=== PATIENT | female | born 1940 | race Caucasian/White ===

== ENCOUNTER 2019-10-03 13:13 | Inpatient (IN) | payer MEDICARE ==
[~2019-10-03] VITALS: Ht 157.5 cm; Wt 54.0 kg
[2019-10-03] MEDS ORDERED: LACTATED RINGERS 1,000 ML IV SCH (13:52)
[2019-10-03] MEDS ORDERED: ACETAMINOPHEN 500 MG TABLET PO ONE (14:00)
[2019-10-03] MEDS ORDERED: BUDE180A INH (14:08)
[2019-10-03] MEDS ORDERED: ACET-1600 PO (14:08)
[2019-10-03] MEDS ORDERED: GABA300C10 PO (14:08)
[2019-10-03] MEDS ORDERED: ACYC-114 PO (14:08)
[2019-10-03 14:20] VITALS: BP 180/92
[2019-10-03] MEDS ORDERED: EPHEDRINE 50 MG/ML, 1ML IVPush PRN (14:30)
[2019-10-03] MEDS ORDERED: PROMETHAZINE 25 MG/ML, 1ML IV PRN (14:30)
[2019-10-03] MEDS ORDERED: FENTANYL PF 100 MCG/2ML IV PRN (14:30)
[2019-10-03] MEDS ORDERED: LABETALOL 5MG/ML, 20ML IV PRN (14:30)
[2019-10-03] MEDS ORDERED: HYDROmorphone 2 MG/ML, 1ML IVPush PRN (14:30)
[2019-10-03] MEDS ORDERED: MEPERIDINE/PF 25MG/ML,1ML IVPush PRN (14:30)
[2019-10-03] MEDS ORDERED: OXYcodone 5 MG/5 ML ORAL.SOL UDC PO PRN (14:30)
[2019-10-03] MEDS ORDERED: ONDANSETRON 2MG/ML, 2ML IV PRN (14:30)
[2019-10-03] MEDS ORDERED: hydrALAzine 20 MG/ML, 1ML IV PRN (14:30)
[2019-10-03] MEDS ORDERED: THROMBIN 5,000 UNIT VIAL TP ONE ×2 (14:41→16:24)
[2019-10-03] MEDS ORDERED: BUPIVACAINE/PF 0.25% ONE (14:41)
[2019-10-03] MEDS ORDERED: BACITRACIN 50,000 UNIT ONE (14:41)
[2019-10-03] MEDS ORDERED: FENTANYL PF 100 MCG/2ML ONE ×2 (15:06→16:50)
[2019-10-03] MEDS ORDERED: PROPOFOL 10 MG/ML, 20ML ONE (15:49)
[2019-10-03] MEDS ORDERED: CEFAZOLIN 1,000 MG ONE (15:49)
[2019-10-03] MEDS ORDERED: DEXAMETHASONE 4 MG/ML, 1ML ONE (15:49)
[2019-10-03] MEDS ORDERED: LIDOCAINE PF 2%, 5ML ONE (15:49)
[2019-10-03] MEDS ORDERED: KETOROLAC 30 MG/1 ML ONE (15:58)
[2019-10-03] MEDS ORDERED: ONDANSETRON 2MG/ML, 2ML ONE (16:09)
[2019-10-03] MEDS ORDERED: EPHEDRINE 50 MG/ML, 1ML ONE (17:07)
[2019-10-03] MEDS ORDERED: HYDROmorphone 1 MG/ML, 1ML INJ IVPush PRN (18:00)
[2019-10-03] MEDS ORDERED: ACETAMINOPHEN 325 MG TABLET PO PRN (18:00)
[2019-10-03] MEDS ORDERED: HYDROmorphone PCA 30 MG/30 ML IV PRN (18:00)
[2019-10-03] MEDS ORDERED: BISACODYL 10 MG SUPP PR PRN (18:00)
[2019-10-03] MEDS ORDERED: PHARMACY MAY ADJ FOR RENAL FX MC PRN (18:00)
[2019-10-03] MEDS ORDERED: DIPHENHYDRAMINE 50 MG/ML, 1ML IVPush PRN (18:00)
[2019-10-03] MEDS ORDERED: PHARMACY INSTRUCTION MC PRN (18:00)
[2019-10-03] MEDS ORDERED: ONDANSETRON 2MG/ML, 2ML IVPush PRN (18:00)
[2019-10-03] MEDS ORDERED: MAGNESIUM HYDROXIDE 8%, 30ML UDC PO PRN (18:00)
[2019-10-03 19:13] VITALS: BP 149/83
[2019-10-03] MEDS: NS + 20MEQ KCL 1,000 ML IV SCH (20:27)
[2019-10-03] MEDS: SODIUM CHLORIDE FLUSH 10ML SYR IVF SCH (20:27)
[2019-10-03] MEDS: GABAPENTIN 300 MG CAPSULE PO SCH (20:30)
[2019-10-03 23:50] VITALS: BP 190/94
[2019-10-04] VITALS (7 sets, daily range): BP systolic 124–215; BP diastolic 71–109
[2019-10-04] MEDS ORDERED: LABETALOL 5 MG/ML SYR. (IV ONLY) IVPush PRN (00:30)
[2019-10-04] MEDS ORDERED: hydrALAzine 20 MG/ML, 1ML IV PRN (00:30)
[2019-10-04] MEDS: CEFAZOLIN PMX 1GM/50ML 50 ML IVPB SCH ×2 (00:41→08:39)
[2019-10-04] MEDS: GABAPENTIN 300 MG CAPSULE PO SCH ×3 (08:36→21:23)
[2019-10-04] MEDS: ACYCLOVIR 400 MG TABLET PO SCH (08:36)
[2019-10-04] MEDS: SENNA/DOCUSATE TABLET PO SCH (08:37)
[2019-10-04] MEDS: SODIUM CHLORIDE FLUSH 10ML SYR IVF SCH ×2 (08:39→21:00)
[2019-10-04] MEDS: NS + 20MEQ KCL 1,000 ML IV SCH (10:21)
[2019-10-04] MEDS: OXYcodone/APAP 5/325MG TABLET PO PRN ×3 (16:28→22:12)
[2019-10-05] MEDS: NS + 20MEQ KCL 1,000 ML IV SCH ×2 (00:20→01:44)
[2019-10-05 02:17] VITALS: BP 141/83
[2019-10-05] MEDS: OXYcodone/APAP 5/325MG TABLET PO PRN ×5 (04:17→22:36)
[2019-10-05] MEDS: TIZANIDINE 4MG TABLET PO PRN ×2 (04:53→16:03)
[2019-10-05 07:15] VITALS: BP 131/75
[2019-10-05] MEDS: SENNA/DOCUSATE TABLET PO SCH (08:35)
[2019-10-05] MEDS: GABAPENTIN 300 MG CAPSULE PO SCH ×3 (08:35→20:38)
[2019-10-05] MEDS: ACYCLOVIR 400 MG TABLET PO SCH (08:35)
[2019-10-05] MEDS: SODIUM CHLORIDE FLUSH 10ML SYR IVF SCH ×2 (08:35→20:38)
[2019-10-05 13:00] VITALS: BP 168/75
[2019-10-05 18:58] VITALS: BP 123/82
[2019-10-06 02:30] VITALS: BP 149/76
[2019-10-06] MEDS: OXYcodone/APAP 5/325MG TABLET PO PRN ×3 (02:53→12:08)
[2019-10-06 07:32] VITALS: BP 126/73
[2019-10-06] MEDS: NS + 20MEQ KCL 1,000 ML IV SCH (08:00)
[2019-10-06] MEDS: TIZANIDINE 4MG TABLET PO PRN (08:14)
[2019-10-06] MEDS: GABAPENTIN 300 MG CAPSULE PO SCH (08:14)
[2019-10-06] MEDS: ACYCLOVIR 400 MG TABLET PO SCH (08:14)
[2019-10-06] MEDS: SODIUM CHLORIDE FLUSH 10ML SYR IVF SCH (08:14)
[2019-10-06] MEDS: SENNA/DOCUSATE TABLET PO SCH (08:14)
[2019-10-06] MEDS ORDERED: OXYcodone/APAP 5/325MG PO (08:50)
[2019-10-06] MEDS ORDERED: TIZA2TAB2 PO (08:50)
[2019-10-06 12:48] VITALS: BP 112/71
== END 2019-10-06 15:37 | disposition home or self-care (01) | DRG 519 ==
LOC: OR 13:13 → ORIP 17:31 → 4NE 18:50 → DCLOUNGE 10-06 14:56
PROVIDERS: ADMIT Neurological Surgery; ATTEND Neurological Surgery
PROC: 01NB0ZZ Release Lumbar Nerve, Open Approach (ICD-10-PCS; principal; 2019-10-06)
PROC: 00NY0ZZ Release Lumbar Spinal Cord, Open Approach (ICD-10-PCS; 2019-10-06)
PROC: 01NR0ZZ Release Sacral Nerve, Open Approach (ICD-10-PCS; 2019-10-06)
PROC: 00QT0ZZ Repair Spinal Meninges, Open Approach (ICD-10-PCS; 2019-10-06)
DX: M48.061 Spinal stenosis, lumbar region without neurogenic claudication (principal); G97.41 Accidental puncture or laceration of dura during a procedure; M54.16 Radiculopathy, lumbar region; M19.90 Unspecified osteoarthritis, unspecified site; F17.210 Nicotine dependence, cigarettes, uncomplicated; M81.0 Age-related osteoporosis without current pathological fracture; J43.9 Emphysema, unspecified; Z88.2 Allergy status to sulfonamides; Z82.61 Family history of arthritis; Y83.8 Other surgical procedures as the cause of abnormal reaction of the patient, or of later complication, without mention of misadventure at the time of the procedure
CPT/HCPCS: 72100; G0378; J0690; J1100; J1170; J1885; J2405; J2704; J3010; J3480; J3490; J0360; J7120

== ENCOUNTER → 2020-08-30 | Outpatient (CLI) | payer MEDICARE ==
[~2020-08-30] MED LIST: ACET-1600 PO; ACYC-114 PO; ACYC-57 PO; BUDE180A INH; CALC-112 PO; GABA300C10 PO; OXYcodone/APAP 5/325MG PO; TIZA2TAB4 PO
[2020-08-30 15:32] LABS: BASOPHILS # (AUTO) 0.04 x10^3/uL (0-0.1); BASOPHILS % (AUTO) 1 % (0-1); EOSINOPHILS # (AUTO) 0.09 x10^3/uL (0-0.4); EOSINOPHILS % (AUTO) 1 % (1-7); LYMPHOCYTES # (AUTO) 2.64 x10^3/uL (1-3.4); LYMPHOCYTES % (AUTO) 32 % (22-44); MD NO; MEAN CORPUSCULAR HEMOGLOBIN 33.9 pg (27.0-34.8); MEAN CORPUSCULAR HGB CONC 33.2 g/dL (32.4-35.8); MEAN PLATELET VOLUME 8.3 fL (7.4-10.4); MONOCYTES # (AUTO) 0.84 x10^3/uL (0.2-0.8); MONOCYTES % (AUTO) 10 % (2-9); NEUTROPHILS # (AUTO) 4.77 x10^3/uL (1.8-6.8); NEUTROPHILS % (AUTO) 57 % (42-75); PLATELET COUNT 248 x10^3/uL (130-400); RED BLOOD COUNT 4.61 x10^6/uL (3.82-5.3); RED CELL DISTRIBUTION WIDTH 13.5 % (9.6-15.2)
[2020-08-30 15:33] LABS: ANION GAP 7 mmol/L (5-15); CALCIUM 9.3 mg/dL (8.5-10.1); CHLORIDE 105 mmol/L (98-107); CREATININE 0.86 mg/dL (0.55-1.02)
[2020-08-30 16:06] LABS: INTERNATIONAL NORMALIZED RATIO 0.97 (0.93-1.1)
[2020-08-30 16:10] LABS: MICROSCOPIC AUTO
== END | disposition home or self-care (01) ==
LOC: STAR 13:05
PROVIDERS: ATTEND Neurological Surgery
DX: Z01.818 Encounter for other preprocedural examination (principal); M51.36 Other intervertebral disc degeneration, lumbar region; M48.061 Spinal stenosis, lumbar region without neurogenic claudication
CPT/HCPCS: 36415; 71046; 72110; 80048; 81001; 85025; 85610; 85730; 87086; 93005

== ENCOUNTER → 2020-09-06 | Outpatient (CLI) | payer MEDICARE | END | disposition home or self-care (01) | LOC: STAR 14:01 | PROVIDERS: ATTEND Anesthesiology | DX: Z01.812 Encounter for preprocedural laboratory examination (principal); Z20.828 Contact with and (suspected) exposure to other viral communicable diseases | CPT/HCPCS: 36415; 87635 ==

== ENCOUNTER → 2020-09-10 | Outpatient (CLI) | payer MEDICARE ==
[~2020-09-10] MED LIST changes: +HYDROmorphone 1 MG/ML, 1ML INJ ONE
== END | disposition home or self-care (01) ==
LOC: RAD 08:00
PROVIDERS: ATTEND Neurological Surgery
DX: S33.140A Subluxation of L4/L5 lumbar vertebra, initial encounter (principal); M41.86 Other forms of scoliosis, lumbar region; M48.061 Spinal stenosis, lumbar region without neurogenic claudication; X58.XXXA Exposure to other specified factors, initial encounter; Y93.89 Activity, other specified; Y92.89 Other specified places as the place of occurrence of the external cause; Y99.8 Other external cause status
CPT/HCPCS: 72131